=== PATIENT | female | born 1945 | race Caucasian/White ===

== ENCOUNTER 2018-01-04 09:16 | Day surgery (SDC) | payer MEDICARE ==
[~2018-01-04 09:16] MED LIST: Acetaminophen TAB* 325 MG PO PRN; Buffered Lidocaine 0.9% SYRIN* 5 ML/SYR SYRINGE INTRADERM ONE; Cyclopentolate 1% OPTH.SOL* 2 ML BTL ONE; Ketorolac 0.5% OPHTH (NF) 0.5 % 5 ML BTL ONE; Lidocaine 1% MPF* 2 ML VIAL ONE; Lidocaine 2% EPI 1:200000 MPF*10-20 ML VIAL ONE; Midazolam* 1 MG/ML 2 ML VIAL (2 MG) ONE; Neomycin/Polymy/Dex OPTH.SUSP* MAXITROL 0.1% 5 ML ONE; Phenylephrine 2.5% OPTH.SOL* 2 ML BTL ONE; Povidone Iodine 5% OPTH* 30 ML BTL ONE; Proparacaine 0.5% OPHTH.SOL* 15 ML BTL ONE; acetaZOLAMIDE TAB* 250 MG ONE
[2018-01-04 12:29] VITALS: BP 117/64
--- NOTE | 2018-01-04 13:34 | OP ---
OPERATIVE NOTE: DATE OF OPERATION: 01/04/18 DATE OF : 43 SURGEON: Juan Luis Martínez M.D. PREOPERATIVE DIAGNOSIS: Cataract, right eye. POSTOPERATIVE DIAGNOSIS: Cataract, right eye. OPERATIVE PROCEDURE: Extracapsular cataract extraction with IOL, right eye. PROCEDURE: The patient was brought to the operating room after being given 1/2% Alcaine with epineph rine drops in the preoperative area. The eye was prepped and draped in the usual sterile fashion. S terile drape and eyelid speculum were placed. Again, topical 1/2% Alcaine with epinephrine was given . A paracentesis incision was made at the 9 o'clock position with the No.75 blade. Clear cornea inc ision 2.2 x 2.2-mm was created at the 12 o'clock position starting at the anterior limbus using the 2 .2-mm keratome. The anterior chamber was irrigated with 0.4 mL of 1% non-preservative intracameral l idocaine and filled with DisCoVisc. A capsulorrhexis was completed using the cystotome and the Utrat a forceps. Hydrodissection was performed with balanced salt solution. The lens nucleus was removed w ith the Phacoemulsification handpiece without incident. Cortex was removed with the irrigation-aspir ation handpiece. The capsular bag was re-inflated using [id number] implant was inserted with the shoo ter. The irrigation-aspiration handpiece was used to remove all residual DisCoVisc. The eye was ref illed with balanced salt solution and the wound checked and found to be watertight. Topical Maxitrol drops were given. [id number]/[facility] #: [id number]
== END 2018-01-04 12:29 | disposition home or self-care (01) ==
LOC: OREAST 09:16
PROVIDERS: ATTEND Specialist
DX: H25.811 Combined forms of age-related cataract, right eye (principal); H43.813 Vitreous degeneration, bilateral; H25.812 Combined forms of age-related cataract, left eye; I10 Essential (primary) hypertension; E78.4 Other hyperlipidemia; I25.2 Old myocardial infarction; F41.0 Panic disorder [episodic paroxysmal anxiety]
CPT/HCPCS: A9270-GY; J2250; V2632

== ENCOUNTER 2018-01-11 07:16 | Day surgery (SDC) | payer MEDICARE ==
[~2018-01-11 07:16] MED LIST changes: -Cyclopentolate 1% OPTH.SOL* 2 ML BTL ONE; -Ketorolac 0.5% OPHTH (NF) 0.5 % 5 ML BTL ONE; -Lidocaine 1% MPF* 2 ML VIAL ONE; -Lidocaine 2% EPI 1:200000 MPF*10-20 ML VIAL ONE; -Midazolam* 1 MG/ML 2 ML VIAL (2 MG) ONE; -Neomycin/Polymy/Dex OPTH.SUSP* MAXITROL 0.1% 5 ML ONE; -Phenylephrine 2.5% OPTH.SOL* 2 ML BTL ONE; -Povidone Iodine 5% OPTH* 30 ML BTL ONE; -Proparacaine 0.5% OPHTH.SOL* 15 ML BTL ONE; -acetaZOLAMIDE TAB* 250 MG ONE
[2018-01-11] MEDS ORDERED: Midazolam* 1 MG/ML 2 ML VIAL (2 MG) ONE ×2 (08:55→09:17)
[2018-01-11] MEDS ORDERED: Neomycin/Polymy/Dex OPTH.SUSP* MAXITROL 0.1% 5 ML ONE (09:23)
[2018-01-11] MEDS ORDERED: acetaZOLAMIDE TAB* 250 MG ONE (09:23)
[2018-01-11] MEDS ORDERED: Phenylephrine 2.5% OPTH.SOL* 2 ML BTL ONE (09:23)
[2018-01-11] MEDS ORDERED: Povidone Iodine 5% OPTH* 30 ML BTL ONE (09:23)
[2018-01-11] MEDS ORDERED: Ketorolac 0.5% OPHTH (NF) 0.5 % 5 ML BTL ONE (09:23)
[2018-01-11] MEDS ORDERED: Cyclopentolate 1% OPTH.SOL* 2 ML BTL ONE (09:23)
[2018-01-11] MEDS ORDERED: Lidocaine 1% MPF* 2 ML VIAL ONE (09:23)
[2018-01-11] MEDS ORDERED: Lidocaine 2% EPI 1:200000 MPF*10-20 ML VIAL ONE (09:23)
[2018-01-11] MEDS ORDERED: Proparacaine 0.5% OPHTH.SOL* 15 ML BTL ONE (09:24)
--- NOTE | 2018-01-11 09:55 | OP ---
DATE OF OPERATION: 01/11/2018 - [facility] DATE OF : 1945. SURGEON: Juan Luis Martínez M.D. PREOPERATIVE DIAGNOSIS: Cataract left eye. POSTOPERATIVE DIAGNOSIS: Cataract left eye. OPERATIVE PROCEDURE: Extracapsular cataract extraction with intraocular lens implant left eye. DESCRIPTION OF PROCEDURE: The patient was brought to the operating room after being given 1/2% Alcaine with epinephrine drops in the preoperative area. The eye was prepped and draped in the usual sterile fashion. Sterile drape and eyelid speculum were placed. Again, topical 1/2% Alcaine with epinephrine was given. A paracentesis incision was made at the 3 o'clock position with the No.75 blade. Clear cornea incision 2.2 x 2.2-mm was created at the 6 o'clock position starting at the anterior limbus using the 2.2-mm keratome. The anterior chamber was irrigated with 0.4 mL of 1% non-preservative intracameral lidocaine and filled with DisCoVisc. A capsulorrhexis was completed using the cystotome and the Utrata forceps. Hydrodissection was performed with balanced salt solution. The lens nucleus was removed with the Phacoemulsification handpiece without incident. Cortex was removed with the irrigation-aspiration handpiece. The capsular bag was re-inflated using DisCoVisc and an [id number] implant was inserted with the shooter. The irrigation-aspiration handpiece was used to remove all residual DisCoVisc. The eye was refilled with balanced salt solution and the wound checked and found to be watertight. Topical Maxitrol drops were given. [id number]/[facility] [place] #: [id number] [facility]
[2018-01-11 10:10] VITALS: BP 108/58
== END 2018-01-11 09:45 | disposition home or self-care (01) ==
LOC: OREAST 07:16
PROVIDERS: ATTEND Specialist
DX: H25.812 Combined forms of age-related cataract, left eye (principal); I10 Essential (primary) hypertension; I25.2 Old myocardial infarction; F41.0 Panic disorder [episodic paroxysmal anxiety]; Z68.33 Body mass index [BMI] 33.0-33.9, adult
CPT/HCPCS: A9270-GY; J2250; V2632

== ENCOUNTER 2020-01-19 10:46 | Emergency (ER) | payer MEDICARE ==
--- OUTSIDE RECORDS SUMMARY | 2020-01-19 10:54 | XMS REPORT | Continuity of Care Document ---
:1945 External Reference #:[id number] Author Name Jay Fraser M.D. (transmitted by agent of provider Kanchan Lancaster) Address [address], [address] [place] [id number] Care Team Providers Name Role Phone Ca Smith MD - Internal Care Team Information [facility] Problems Active Problems Provider Date Essential hypertension Stuart Cavanaugh M.D. Onset: 02/07/2015 Dyslipidemia Stuart Cavanaugh M.D. Onset: 02/07/2015 Obesity Ca Smith M.D. Onset: 05/26/2017 Social History Type Date Description Comments Sex Unknown ETOH Use Occasionally consumes alcohol Tobacco Use Start: Unknown Patient has never smoked Recreational Drug Use Denies Drug Use Smoking Status Reviewed: 11/28/19 Patient has never smoked Exercise Type/Frequency Exercises regularly walks daily 2 miles with friends chair yoga Allergies, Adverse Reactions, Alerts Active Allergies Reaction Severity Comments Date Penicillin Anaphylaxis Severe 02/07/2015 Cipro tightness in chest, itching Moderate 02/07/2015 Medications Active Medications SIG Qnty Indications Ordering Date Provider Shingrix intramuscular x 1 1units Ca Smith, 05/25/2018 50mcg then repeat in 4 M.D. Suspension Rec months Metamucil follow instructions K29.00 Jaron Denis, 03/17/2016 28.3% on bottle [employer]ELOPER Powder Aspirin 1 by mouth every day I10 Unknown 81mg Tablets E78.4 Calcium 600 + D 1 by mouth every E55.9 Unknown [id number] day Tablets Vitamin D3 2 by mouth every E55.9 Unknown 2000Unit Capsules day Metoprolol Succinate ER take one tablet by 90tabs I10 Maxwell Elizabeth, [employer]IOR [employer]RO[employer] DEVELOPER 25mg mouth every day Tablets ER 24HR Vitamin B12 TR 1 by mouth every Unknown 2000mcg Tablets ER day Simvastatin take one tablet by 90tabs E78.49 Maxwell Elizabeth, S[employer]IOR [employer]RO[employer] DEVELOPER 20mg Tablets mouth every day Lisinopril take one tablet by 90tabs I10 Maxwellrakesh Johnson, SENIOR ANDROID DEVELOPER 5mg Tablets mouth every day Immunizations CPT Code Status Date Vaccine Lot # [id number] Given 06/21/2018 Fluzone High Dose [id number] Given 11/23/2017 Tdap - Tetanus/Diptheria/Acellular Pertussis [id number] Given 06/29/2017 Fluzone High Dose 51156 Given 05/26/2017 Pneumococcal Conjugate Vaccine 13 Valent For [id number] Intramuscular Use 92212 Given 05/13/2016 Pneumonia Vaccine [id number] Vital Signs Date Vital Result Comment 11/28/2019 11:33am Height 64 inches 5'4" Weight 192.00 lb Heart Rate 55 /min BP Systolic Sitting 124 mmHg BP Diastolic Sitting 65 mmHg BMI (Body Mass Index) 33.0 kg/m2 05/30/2019 11:07am Height 64 inches 5'4" Weight 188.00 lb Heart Rate 54 /min BP Systolic Sitting 131 mmHg BP Diastolic Sitting 69 mmHg O2 % BldC Oximetry 98 % BMI (Body Mass Index) 32.3 kg/m2 Results Test Acquired Date Facility Test Result H/L Range Note Laboratory test 06/08/2019 [facility] Hemosure Negative finding Medicare Procedures Date Code Description Status 12/25/2018 407074387 Bone Mineral Density Test Completed 06/21/2018 [id number] Mammogram Completed 06/17/2017 [id number] Mammogram Completed 06/03/2016 [id number] Mammogram Completed 09/12/2015 [id number] Colonoscopy Completed 04/22/2015 [id number] Colonoscopy Completed 11/10/2014 [id number] Mammogram Completed Medical Devices Description No Information Available Encounters Type Date Location Provider Dx Diagnosis Office Visit 11/28/2019 [facility] Jay Fraser, I10 Essential ( primary) 11:40a Medicine - Jeromy Harris hypertension E78.49 Other hyperlipidemia L98.9 Disorder of the skin and subcutaneous tissue, unspecified Assessments Date Code Description Provider 11/28/2019 I10 Essential (primary) hypertension Jay Fraser M.D. 11/28/2019 E78.49 Other hyperlipidemia Jay Fraser M.D. 11/28/2019 L98.9 Disorder of the skin and subcutaneous Jay Fraser M.D. tissue, unspecified 06/08/2019 Z12.11 Encounter for screening for malignant Nurse Visit A neoplasm of colon Plan of Treatment Future Appointment(s):06/04/2020 11:10 am - Ca Smith M.D. at [facility]11/28/2019 - Jay Fraser M.D.I10 Essential ( primary) hypertensionComments:BPs good; continue Rx, but pt advised to move her Metoprolol to the evening. Continue home BP checks, diet/exercise efforts.Follow up:Wellness exam with Dr Smith in 6 months or prnE78.49 Other hyperlipidemiaComments:On RxL98.9 Disorder of the skin and subcutaneous tissue, unspecifiedComments:Pt couldn't see Dr Young; new derm referral entered.Referral:Loree Mason MD, Dermatology Functional Status Description No Information Available Mental Status Description No Information Available Referrals Refer to Dr Reason for Referral Status Appt Date Loree Mason MD general skin check Sent [address] [place] [address] [phone]
--- NOTE | 2020-01-19 11:05 | ED ---
Abdominal Pain/Female - HPI Summary HPI Summary: 74 y/o female presented to [facility] for bilat lower abd pain rated 6/10 present since yesterday. Lower back pain also noted. Pt denies N/V, blood in stool, fever, and chills. BM normal. Pt has Hx of diverticulitis 5 years ago and notes the pain is similar. She has taken Metamucil daily and states she has had no issues since. No Hx of abd surgery, diabetes, or stomach ulcers. Hx of hysterectomy as well as an MT in 2010 and CAD noted. - History of Current Complaint Chief Complaint: EDAbdPain Stated Complaint: FEVER/LOWER BODY PAIN PER PT Time Seen by Provider: 01/19/20 10:54 Hx Obtained From: Patient Onset/Duration: Lasting Days, Still Present Timing: Days Severity Currently: Moderate Pain Intensity: 6 Pain Scale Used: 0-10 Numeric Location: Other - bilat lower Aggravating Factor(s): Nothing Alleviating Factor(s): Nothing Associated Signs and Symptoms: Positive: Back Pain, Other: - negative - chills. Negative: Fever, Blood in Stool, Nausea, Vomiting, Diarrhea Allergies/Adverse Reactions: Allergies Allergy/AdvReac Type Severity Reaction Status Date / Time Penicillins Allergy Severe Swelling Verified 01/19/20 10:53 ciprofloxacin Allergy Intermediate Rash And Verified 01/19/20 10:53 Itching Home Medications: Home Medications Lisinopril TAB* [Prinivil TAB 5 MG*] 5 mg PO QPM 04/18/15 [History Confirmed 08/13] Metoprolol Succinate XL TAB* [Toprol XL TAB*] 25 mg PO QAM 04/18/15 [History Confirmed 01/04/18] Simvastatin TAB(NF) [Zocor 20 MG (NF)] 20 mg PO BEDTIME 04/18/15 [History Confirmed 01/04/18] Aspirin EC TAB* [Ecotrin EC Low Dose 81 MG*] 81 mg PO QAM 12/29/17 [History Confirmed 01/04/18] Calcium Carbonate/Vitamin D3 [Calcium 600 + Vit D Tablet] 1 each PO QAM [History Confirmed 01/04/18] Cholecalciferol (Vitamin D3) [Vitamin D3] 2,000 unit PO QPM 12/29/17 [History Confirmed 01/04/18] Cyanocobalamin TAB* [Vitamin B12 TAB*] 1,000 mcg PO QPM 12/29/17 [History Confirmed 01/04/18] Psyllium Husk/Aspartame [Metamucil Powder] 1 tbsp PO QAM 12/29/17 [History Confirmed 01/04/18] Vitamin B-12 01/04/18 [History] Clindamycin Cap(NF) [Clindamycin Cap 300 mg Cap(NF)] 300 mg PO Q6H #40 cap 08/17 [Rx] Naproxen [Naproxen 250 mg tab] 250 mg PO BID PRN #10 tablet 08/17/18 [Rx] Sulfamethox/Trimethoprim DS* [Bactrim DS 800/160 TAB*] 1 tab PO BID #20 tab [Rx] metroNIDAZOLE [Flagyl 500 MG TAB] 500 mg PO TID #30 tab 01/19/20 [Rx] PMH/Surg Hx/FS Hx/Imm Hx Cardiovascular History: Reports: Hx Hypertension, Hx Rheumatic Fever - as a child Sensory History: Reports: Hx Cataracts - both, Hx Contacts or Glasses - glasses Denies: Hx Deafness, Hx Hearing Aid Opthamlomology History: Reports: Hx Cataracts - both, Hx Contacts or Glasses - glasses - Cancer History Hx Chemotherapy: No Hx Radiation Therapy: No - Surgical History Surgery Procedure, Year, and Place: hysterectomy 1983 [facility]. bladder fistula repair [facility]. gallbladder removed [facility] Hx Anesthesia Reactions: No Infectious Disease History: No Infectious Disease History: Denies: Traveled Outside the [place] in Last 30 Days - Family History Family History: Non-Contributory - Social History Alcohol Use: Rare Hx Substance Use: No Substance Use Type: Reports: None Hx Tobacco Use: No Smoking Status (MU): Never Smoked Tobacco Review of Systems Negative: Fever, Chills Positive: Abdominal Pain - bilat lower, Other - negative - blood in stool. Negative: Vomiting, Diarrhea, Nausea Positive: Myalgia - lower back All Other Systems Reviewed And Are Negative: Yes Physical Exam - Summary Physical Exam Summary: Constitutional: Well-developed, Well-nourished, Alert. (-) Distressed Skin: Warm, Dry HENT: Normocephalic; Atraumatic Eyes: Conjunctiva normal Neck: Musculoskeletal ROM normal neck. (-) JVD, (-) Stridor, (-) Tracheal deviation Cardio: Rhythm regular, rate normal, Heart sounds normal; Intact distal pulses; The pedal pulses are 2+ and symmetric. Radial pulses are 2+ and symmetric. (-) Murmur Pulmonary/Chest wall: Effort normal. (-) Respiratory distress, (-) Wheezes, (-) Rales Abd: Soft, (+) Mild tenderness throughout lower abdomen, (-) Distension, (-) Guarding, (-) Rebound Musculoskeletal: (-) Edema Lymph: (-) Cervical adenopathy Neuro: Alert, Oriented x3 Psych: Mood and affect Normal Triage Information Reviewed: Yes Vital Signs On Initial Exam: Initial Vitals Temp Pulse Resp BP Pulse Ox 97.2 F 69 16 166/85 99 01/19/20 10:47 01/19/20 10:47 01/19/20 10:47 01/19/20 10:47 01/19/20 10:47 Vital Signs Reviewed: Yes Procedures - Sedation Patient Received Moderate/Deep Sedation with Procedure: No Diagnostics - Vital Signs Vital Signs Temp Pulse Resp BP Pulse Ox 01/19/20 10:47 97.2 F 69 16 166/85 99 - Laboratory Result Diagrams: 01/19/20 11:20 01/19/20 11:20 Lab Statement: Any lab studies that have been ordered have been reviewed, and results considered in the medical decision making process. - CT Abd/pel CT Interpretation Completed By: Radiologist Summary of CT Findings: DIVERTICULITIS, WITHOUT LOCULATED FLUID COLLECTION TO SUGGEST ABSCESS. HEPATIC STEATOSIS. This report was reviewed by Dr. Deras. Abdominal Pain Fem Course/Dx - Course Course Of Treatment: 74 y/o female presented to [facility] for bilat lower abd pain since yesterday. Lower back pain also noted. Pt denies N/V, blood in stool, fever, and chills. BM normal. Pt has Hx of diverticulitis 5 years ago and notes the pain is similar. She has taken Metamucil daily and states she has had no issues since. No Hx of abd surgery, diabetes, or stomach ulcers. Hx of hysterectomy as well as an MT in 2010 and CAD noted. Exam showed Mild tenderness throughout lower abdomen. Labs showed RBC 4.90, Glc 124, Alk 108, CRP 45.05. Urine showed leukocyte esterase, squamous epithelium, and ascorbic acid. CT abd/pel showed DIVERTICULITIS, WITHOUT LOCULATED FLUID COLLECTION TO SUGGEST ABSCESS. HEPATIC STEATOSIS. Pt was given 2mg IVPB Ceftriaxone and 500mg IVPB Flagyl. Pt with multiple abx allergies. Discussed with pharmacist use of Bactrim given interaction with Lisinopril. Moderate risk, normal renal function, normal K. Thus, pt prescribed Bactrim along with Flagyl. Pt was diagnosed with Diverticulitis; prescribed PO Flagyl and PO Bactrim; and discharged to home. - Diagnoses Provider Diagnoses: Diverticulitis - Critical Care Time Critical Care Statement: Critical care time is provided exclusive of any time spent performing procedures. Discharge ED - Sign-Out/Discharge Documenting (check all that apply): Patient Departure - dc - Discharge Plan Condition: Stable Disposition: HOME Prescriptions: metroNIDAZOLE [Flagyl 500 MG TAB] 500 mg PO TID #30 tab Sulfamethox/Trimethoprim DS* [Bactrim DS 800/160 TAB*] 1 tab PO BID #20 tab Patient Education Materials: Diverticulitis (ED) Referrals: Ca Smith MD [Primary Care Provider] - Additional Instructions: Follow up with your primary care provider in 1-3 days. If you experience new or worsening symptoms please return to the ER. - Billing Disposition and Condition Condition: STABLE Disposition: Home - Attestation Statements Document Initiated by Scribe: Yes Documenting Scribe: Miguel Moya Provider For Whom Umesh is Documenting (Include Credential): Ovi Deras DO Scribe Attestation: Miguel Villasenor scribed for Ovi Deras DO on 01/19/20 at 1638. Scribe Documentation Reviewed: Yes Provider Attestation: The documentation as recorded by the Miguel purcell accurately reflects the service I personally performed and the decisions made by Ovi tran DO Status of Scribe Document: Viewed
[2020-01-19 11:40] LABS: ABS Eosinophils 0.1 10^3/ul (0-0.6); ABS Lymphocytes 1.2 10^3/ul (1.0-4.8); ABS Monocytes 0.6 10^3/ul (0-0.8); ABS Neutrophils 6.1 10^3/ul (1.5-7.7); Hematocrit 43 % (35-47); Hemoglobin 14.6 g/dL (12.0-16.0); Lymphocyte % 14.5 %; Mean Corpuscular HGB Conc 34 g/dL (31-36); Mean Corpuscular Hemoglobin 30 pg (27-31); Mean Corpuscular Volume 88 fL (80-97); Mean Platelet Volume 8.5 fL (7.4-10.4); Platelet Count 255 10^3/uL (150-450); Red Cell Distribution Width 13 % (10-15)
[2020-01-19 11:52] LABS: Urine Appearance Cloudy; Urine Bilirubin Negative (Negative); Urine Blood Negative (Negative); Urine Color Yellow; Urine Glucose Negative (Negative); Urine Ketones Negative (Negative); Urine Nitrite Negative (Negative); Urine Protein Negative (Negative); Urine Specific Gravity 1.018 (1.010-1.030); Urine Urobilinogen Negative (Negative)
[2020-01-19 11:53] LABS: Urine Bacteria Absent (Absent); Urine Red Blood Cell Absent (Absent); Urine Squamous Epithelial Cell Present (Absent); Urine White Blood Cell Trace(0-5/hpf) (Absent)
[2020-01-19 11:57] LABS: Albumin 4.2 g/dL (3.2-5.2); Albumin/Globulin Ratio 1.4 (1-3); C Reactive Protein 45.05 mg/L (<8.01); Calcium 10.3 mg/dL (8.6-10.3); EGFR African American 98.7 (>60); EGFR Non-African American 81.6 (>60); Potassium 3.7 mmol/L (3.5-5.0); Total Bilirubin 0.6 mg/dL (0.2-1.0); Total Protein 7.2 g/dL (6.4-8.9)
[2020-01-19] MEDS ORDERED: Iohexol 300* (CONTRAST) 10 ML SDV IV ONE (12:45)
[2020-01-19 12:57] LABS: Erythrocyte Sed Rate 37 mm/Hr (0-29)
[2020-01-19] MEDS ORDERED: NS 0.9% 1000 ML** 1,000 ML IV ONE (13:16)
[2020-01-19] MEDS ORDERED: cefTRIAXone(*) 2 GM in NS 0.9% 100 ML* 100 ML IVPB ONE (13:23)
[2020-01-19] MEDS ORDERED: metroNIDAZOLE IV 500 MG/100ML* 500 MG/100 ML BAG IVPB ONE (13:26)
[2020-01-19 16:16] VITALS: BP 123/63
== END 2020-01-19 14:39 | disposition home or self-care (01) ==
LOC: ED 10:46
DX: K57.92 Diverticulitis of intestine, part unspecified, without perforation or abscess without bleeding (principal); Z79.82 Long term (current) use of aspirin; I10 Essential (primary) hypertension
CPT/HCPCS: 36415; 74177; 80053; 81003; 81015; 85025; 85652; 86140; 87086; 96361; 96374; 96375; 99283; J0696; Q9967